=== PATIENT | female | born 1985 | race Caucasian/White ===

== ENCOUNTER 2018-10-28 14:56 | Inpatient (IN) | payer MEDICAID ==
[~2018-10-28] VITALS: Ht 167.6 cm; Wt 72.5 kg
[~2018-10-28 14:56] MED LIST: EPHEDrine 50 MG INJ ONE; OXYTOCIN 30 UNITS/LR 500 ML BAG IV ONE; PHENYLephrine 10 MG INJ ONE
[2018-10-28 15:47] VITALS: Ht 167.6 cm; Wt 72.5 kg
[2018-10-28 15:49] VITALS: BP 121/76; PULSE 93; RESP 19
[2018-10-28] MEDS ORDERED: CARBOPROST 250 MCG INJ IM PRN (16:00)
[2018-10-28] MEDS ORDERED: OXYTOCIN 30 UNITS/LR 500 ML IV PRN (16:00)
[2018-10-28] MEDS ORDERED: MISOPROSTOL 200 MCG TAB PR PRN ×2 (16:00→19:00)
[2018-10-28] MEDS ORDERED: METHYLERGONOVINE 0.2 MG INJ IM PRN (16:00)
[2018-10-28] MEDS: LACTATED RINGER'S 1,000 ML IV SCH (16:59)
--- NOTE | 2018-10-28 17:58 | PREAC ---
Date/Time of Note Date/Time of Note DATE: 10/28/18 TIME: 17:57 Anesthesia Eval and Record Evaluation Time Pre-Procedure Interview DATE: 10/28/18 TIME: 17:57 Age 33 Sex female NPO: 8 hrs Preoperative diagnosis Planned procedure repeat c/s Past Medical History Past Medical History: None Surgery & Anesthesia Issues No known issue Meds Anticoagulation: No Beta Marguerite within 24 hr: No Reason Beta Marguerite not given: Pt. not on B-Marguerite Current Medications Lactated Ringer's 1,000 ml @ 125 mls/hr Q8H IV Last administered on 10/28/18at 16:59; Admin Dose 125 MLS/HR; Start 10/28/18 at 15:53 Cefazolin Sodium/ Dextrose 50 ml @ 100 mls/hr ONCE IVPB ; Start 10/28/18 at 16:00 Oxytocin/Lactated Ringer's 500 ml @ 125 mls/hr POST IV ; Start 10/28/18 at 16:00 Oxytocin/Lactated Ringer's 500 ml @ 0 mls/hr ONCE PRN IV .VAGINAL BLEEDING; Start 10/28/18 at 16:00 Methylergonovine Maleate (Methergine) 0.2 mg ONCE PRN IM .VAGINAL BLEEDING; Start 10/28/18 at 16:00 Carboprost Tromethamine (Hemabate) 250 mcg ONCE PRN IM .VAGINAL BLEEDING; Start 10/28/18 at 16:00 Misoprostol (Cytotec) 1,000 mcg ONCE PRN [place] .VAGINAL BLEEDING; Start 10/28/18 at 16:00 Meds reviewed: Yes Allergies Coded Allergies: No Known Allergy (Unverified , 10/28/18) Allergies Reviewed: Yes Labs/Studies Labs Reviewed: Reviewed by anesthesiologist Result Diagram: 10/28/18 1620 Laboratory Tests 10/28/18 16:20 Blood Bank Test 10/28/18 16:20 Antibody Screen POSITIVE Blood Type A NEGATIVE test: Positive Pre-procedure Exam Last vitals Vital Signs Date Temp Pulse Resp B/P (MAP) Pulse Ox O2 O2 Flow FiO2 Time Delivery Rate 10/28/18 98.8 93 19 121/76 Room Air 15:49 (91) Airway: Adequate mouth opening, Adequate thyromental dist Mallampati: Mallampati II Teeth: Normal Lung: Normal Heart: Normal ASA Physical Status ASA physical status: 2 Emergency: None Planned Anesthetic Neuraxial: Spinal Planned Pain Management Sub-arachniod narcotics Pre-operative Attestations Prior to commencing anesthesia and surgery, the patient was re-evaluated, there was verification of: *The patient's identity *The results of appropriate recent lab work and preoperative vital signs *The above evaluation not changing prior to induction *Anesthetic plan, risk benefits, alternative and complications discussed with patient/family; questions answered; patient/family understands, accepts and wishes to proceed. REED PEREYRA Oct 28, 2018 17:58
[2018-10-28] MEDS ORDERED: METOCLOPRAMIDE 10 MG INJ IV PRN (18:00)
[2018-10-28] MEDS ORDERED: ONDANSETRON 4 MG INJ IV PRN ×2 (18:00)
[2018-10-28] MEDS ORDERED: NALOXONE (0.4 MG/ML) INJ IV PRN (18:00)
[2018-10-28] MEDS ORDERED: ALBUTEROL 0.083% (NEB) 2.5 MG/3 ML AMP HHN PRN (18:00)
[2018-10-28] MEDS ORDERED: KETOROLAC 30 MG INJ IV PRN (18:00)
[2018-10-28] MEDS ORDERED: HYDROmorphONE 0.5 MG/0.5 ML SYG IV PRN (18:00)
[2018-10-28] MEDS ORDERED: HYDROmorphONE 1 MG/5 ML IV SYRINGE IV PRN ×3 (18:00)
[2018-10-28] MEDS ORDERED: DIPHENHYDRAMINE 50 MG INJ IV PRN ×2 (18:00)
[2018-10-28] MEDS ORDERED: FENTAnyl 50 MCG/ML VIAL IV PRN ×3 (18:00)
--- NOTE | 2018-10-28 18:36 | HP ---
Date/Time of Note Date/Time of Note DATE: 10/28/18 TIME: 18:27 OB - History Hx of Present Free Text/Dictation 33 YO with IUP at 35.6 weeks with EDC 11/26/2018. 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 she was seen in consultation with perinatologist at maternal center in [place]. she underwent umbilical vein cordocentesis and intrauterine blood transfusion 2 times. last blood transfusion was on 10/14/2018. anemia and hydrops resolved. Perinatologist recommended to proceed with delivery at this time. NICU is aware that baby may need exchange transfusion and they are available. patient also has history of previous delivery, who desires to have repeat delivery. I discussed with the patient the risks, benefits, indications, and alternatives of procedure including but not limited to risks of infection, bleeding, damage to other organs, bowel, bladder, hernia formation, scar formation, possibility of blood transfusion, possible need for emergency hysterectomy. She was allowed to ask questions. All her questions were answered. Informed consent has been obtained. Care: Good Care Ultrasounds: Normal mid trimester US Obstetrical Complications: Other (Isoimmunization, Hydrops resolved) Medical Complications: Other (Isoimmunization) Past Family/Social History * Past Medical, Surgical, Family and Obstetric Histories reviewed from chart. OB Admission Exam Vital Signs Vital Signs Vital Signs Date Temp Pulse Resp B/P (MAP) Pulse Ox O2 O2 Flow FiO2 Time Delivery Rate 10/28/18 98.8 93 19 121/76 Room Air 15:49 (91) Physical Exam HEENT: WNL Heart: Rhythm Normal Lungs: Clear, Equal Abdomen: WNL Extremities: Normal Reflexes: Normal Last 72 hours Lab Results CBC & BMP 10/28/18 16:20 OB Assessment/Plan Other Assessment: IUP at 35.6 weeks Isoimmunization s/p intrauterine blood transfusion x 2 Hydrops Resolved h/o previous delivery Plan: Section CHRISTOPHE TEIXEIRA MD Oct 28, 2018 18:36
[2018-10-28] MEDS ORDERED: morphine SULFATE/PF (10 MG/10 ML) INJ ONE (18:37)
[2018-10-28] MEDS ORDERED: LACTATED RINGER'S 1,000 ML IV SCH (18:37)
[2018-10-28] MEDS ORDERED: LANOLIN HPA 1 PKT TOP PRN (19:00)
[2018-10-28] MEDS ORDERED: OXYCODONE/ACETAMINOPHEN (5/325) TAB PO PRN (19:00)
[2018-10-28] MEDS ORDERED: NA PHOSPHATE/BIPHOS 133 ML ENEMA PR PRN (19:00)
--- NOTE | 2018-10-28 19:59 | OPR ---
Date/Time of Note Date/Time of Note DATE: 10/28/18 TIME: 19:51 Operative Report Procedure Date: Oct 28, 2018 Preoperative Diagnosis IUP at 35.6 weeks Isoimmunization history of previous delivery Postoperative Diagnosis same Operation/Procedure Performed repeat delivery Surgeon Bird Hernandez MD Guide Setter Daisy De Luna MD Anesthesia Type: spinal Estimated Blood Loss: other (700) Transfusion none Specimen placenta Grafts/Implants none Tubes/Drains [place]y Cath Complications none Pt Condition Post Procedure: stable Disposition: PACU Procedure Description The risks, benefits, indications, alternatives of procedure including, but not limited to risk of infection, bleeding, damage to other organs, bowel, bladder, hernia formation, scar formation, possibility of blood transfusions discussed with patient. She was allowed to ask questions. All her questions were answered. Informed consent was obtained. DESCRIPTION OF PROCEDURE: She was taken to the operating room. Spinal an esthesia was induced. She was prepped and draped in the usual sterile fashion. Surgical time out one. Anesthesia was tested to be adequate. With permission from anesthesiologist, a knife was used to make a Pfannenstiel skin incision. The incision was taken down in layers. The fascia was cut, undermined and from the underlying muscle using sharp and blunt dissection. All the bleeders were cauterized. Peritoneum was entered bluntly. A low transverse incision was developed over the uterus. Amniotic fluid was clear and adequate. A viable infant in vertex presentation was delivered without any difficulty. The cord was clamped and cut, handed to awaiting team. Placenta was then delivered. Uterus was not exteriorized due to dense adhesions to anterior abdominal wall. Inside uterus was cleaned using a dry lap. All residual membranes were removed. The uterine incision was then closed using #1 Monocryl in 2 layers. Irrigation was done carefully. Careful evaluation of the uterine incision revealed no further bleeding. The peritoneum and rectus muscles and fascia were evaluated. All bleeders cauterized. Peritoneum was closed using 2- 0 Monocryl. At this time, the count was correct. Rectus muscle was reapproximated using 2-0 Monocryl. Rectus fascia was closed using #1 Vicryl. Subcutaneous tissue was cleaned and irrigated. All bleeders cauterized and the skin closed using Insorb. All counts correct. BIRD HERNANDEZ MD Oct 28, 2018 19:59
[2018-10-28] MEDS: OXYTOCIN 30 UNITS/LR 500 ML IV SCH ×2 (20:02→23:39)
[2018-10-28] MEDS: SENNA/DOCUSATE NA (8.6MG/50MG) TAB PO SCH (21:00)
[2018-10-28] MEDS: HYDROmorphONE 0.5 MG/0.5 ML SYG IV PRN (22:49)
[2018-10-28 23:24] VITALS: BP 120/77; PULSE 89; RESP 18
[2018-10-29] MEDS: KETOROLAC 30 MG INJ IV PRN ×2 (03:24→14:59)
[2018-10-29] MEDS: LACTATED RINGER'S 1,000 ML IV SCH ×4 (03:28→23:53)
[2018-10-29 04:26] VITALS: BP 139/87; PULSE 87; RESP 18
[2018-10-29 07:00] VITALS: BP 117/74; PULSE 90; RESP 20
[2018-10-29 07:33] VITALS: BP 119/69; PULSE 86; RESP 18
[2018-10-29] MEDS: HYDROmorphONE 0.5 MG/0.5 ML SYG IV PRN ×2 (07:41→11:50)
--- NOTE | 2018-10-29 07:53 | QN ---
Documentation Comment s/p c/s Subjective: no complaint Objective: Afebrile, VSS NAD A&O Abdomen: soft, appropriate tender Incision: no sign of bleeding/infection mild lochia Extremity: 1+ edema bilaterally Assessment: S/p C/S. POD # 1 Recovering Well Plan: current care CHRISTOPHE TEIXEIRA MD Oct 29, 2018 07:53
[2018-10-29] MEDS: SENNA/DOCUSATE NA (8.6MG/50MG) TAB PO SCH ×2 (09:35→23:36)
[2018-10-29 12:47] VITALS: BP 112/80; PULSE 100; RESP 18
[2018-10-29 16:15] VITALS: BP 108/66; PULSE 91; RESP 16
[2018-10-29] MEDS ORDERED: WITCH HAZEL/GLYCERIN PAD PR PRN (16:30)
[2018-10-29] MEDS: CEFAZOLIN 2 GM/50 ML (PMX) 50 ML IVPB SCH (17:05)
[2018-10-29 19:45] VITALS: BP 115/71; PULSE 92; RESP 18
[2018-10-29] MEDS: OXYCODONE/ACETAMINOPHEN (5/325) TAB PO PRN (20:00)
[2018-10-29] MEDS: IBUPROFEN 600 MG TAB PO SCH (23:36)
[2018-10-30] MEDS: OXYCODONE/ACETAMINOPHEN (5/325) TAB PO PRN ×4 (00:41→21:06)
[2018-10-30 05:07] VITALS: BP 99/73; PULSE 72; RESP 18
[2018-10-30] MEDS: IBUPROFEN 600 MG TAB PO SCH ×2 (06:05→11:30)
[2018-10-30 07:50] VITALS: BP 116/61; PULSE 83; RESP 16
[2018-10-30] MEDS: SENNA/DOCUSATE NA (8.6MG/50MG) TAB PO SCH ×2 (10:45→21:05)
--- NOTE | 2018-10-30 13:20 | QN ---
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 Baby in NICU T=98.1 BP 116/61 Fundus firm. Incision is clean, dry and intact. Lochia minimal. Ext NT, no edema. 4/5 WBC 7.9 Hgb 12.1 Plts 208. P: Continue care, Plan d/c tomorrow. Pt does not need Rhogam as she already has antibodies. The baby's bllod type is showing O negative but that is the type of blood that the baby received in utero. YELENA WILSON MD Oct 30, 2018 13:20
[2018-10-30 16:00] VITALS: BP 117/82; PULSE 86; RESP 17
[2018-10-30] MEDS: IBUPROFEN 800 MG TAB PO SCH ×2 (17:45→23:48)
[2018-10-30] MEDS ORDERED: IBUPROFEN 600 MG TAB PO SCH (18:00)
[2018-10-30 20:10] VITALS: BP 110/64; PULSE 86; RESP 18
[2018-10-31] MEDS: OXYCODONE/ACETAMINOPHEN (5/325) TAB PO PRN ×5 (00:43→22:18)
[2018-10-31 04:00] VITALS: BP 118/56; PULSE 82; RESP 18
[2018-10-31] MEDS: IBUPROFEN 800 MG TAB PO SCH ×3 (05:40→18:28)
[2018-10-31 08:40] VITALS: BP 112/67; PULSE 80; RESP 20
[2018-10-31] MEDS: SENNA/DOCUSATE NA (8.6MG/50MG) TAB PO SCH ×2 (08:40→22:18)
[2018-10-31] MEDS ORDERED: DIPHTH/TET/ACEL PERTUSS (ADULT) 0.5 ML VIAL IM* ONE (09:00)
[2018-10-31] MEDS ORDERED: MEASLES,MUMPS,RUBELLA VACCINE INJ SC* ONE (09:00)
--- NOTE | 2018-10-31 12:06 | DS ---
Date/Time of Note Date/Time of Note DATE: 10/31/18 TIME: 12:05 Obstetrical Discharge Record Final Diagnosis Final Diagnosis: delivered Other Final Diagnosis she underwent early repeat c/s due to isoimmunization Section Section: Repeat Complications Augmentation: No Induction: No Rupture of Membranes: No Condition on Discharge Physical Assessment Voiding: Yes Bowel Movement: Yes Breast: Soft, non-tender, Filling Fundus: Firm Abdomen and Incision: soft, appropriate tenderness Calf Tenderness: No Patient Condition: Good CHRISTOPHE TEIXEIRA MD Oct 31, 2018 12:06
[2018-10-31 16:30] VITALS: BP 123/67; PULSE 87; RESP 18
[2018-10-31 22:18] VITALS: BP 123/65; PULSE 66; RESP 19
[2018-11-01] MEDS: IBUPROFEN 800 MG TAB PO SCH ×4 (00:07→17:53)
[2018-11-01 03:50] VITALS: BP 114/64; PULSE 81; RESP 18
[2018-11-01 07:24] VITALS: BP 112/59; PULSE 82; RESP 18
[2018-11-01] MEDS: SENNA/DOCUSATE NA (8.6MG/50MG) TAB PO SCH (08:40)
[2018-11-01] MEDS: CEFAZOLIN 2 GM/50 ML (PMX) 50 ML IVPB SCH (11:26)
[2018-11-01 17:45] VITALS: BP 129/82; PULSE 103
--- NOTE | 2018-11-02 18:11 | DELSUM ---
Delivery Summary A-C Datetime Report Generated by CPN: 11/02/2018 18:11 DELIVERY PERSONNEL Welt Slasher: Duvo, Verónica MATERNAL INFORMATION Delivery Anesthesia: Spinal Medications in Delivery: see anesthesia record Delivery QBL (ml): 600 Placenta Cultured: Yes Maternal Complications: Other Other Maternal Complications: pre-term, Antibody POSITIVE during . Hydrops fetalis due to R H isoimmunization. intrauterine transfusions on 10/07/18 _ 10/12/18. LABOR SUMMARY EDC: 11/26/2018 00:00 No. Babies in Womb: 1 Attempted: No Labor Anesthesia: None LABOR INFORMATION Reason for Induction: Not Applicable Oxytocin: N/A Group B Beta Strep: Done, Result Unknown Antibiotics # of Doses: 1 Antibiotics Time of Last Dose: 10/28/2018 18:50 Steroids Given: Full Course Reason Steroids Not Administered: Not Applicable MEMBRANES Membranes Rupture Method: Artificial Rupture of Membranes: 10/28/2018 19:03 Length of Rupture (hr): 0.02 Amniotic Fluid Color: Clear Amniotic Fluid Amount: Moderate Amniotic Fluid Odor: None STAGES OF LABOR Stage 3 hr: 0 Stage 3 min: 1 CSECTION DELIVERY Primary Indication: Other Other Primary Indication: RH isoimmunization Secondary Indication: Other Other Secondary Indication: hydrops fetalis CSection Urgency: Non Elective CSection Incidence: Repeat Labor: N/A Elective: Nonelective CSection Incision: Lower Uterine Transverse BABY A INFORMATION Delivery Date/Time: 10/28/2018 19:04 Method of Delivery: Born in Route : No : N/A Forceps: N/A Vacuum Extraction: N/A Shoulder Dystocia : No SHOULDER DYSTOCIA BABY A Delivery Date/Time: 10/28/2018 19:04 PRESENTATION/POSITION BABY A Presentation: Cephalic Cephalic Presentation: Vertex Vertex Position: Left Occipital Anterior Breech Presentation: N/A PLACENTA INFORMATION BABY A Placenta Delivery Time : 10/28/2018 19:05 Placenta Method of Delivery: Manual Removal Placenta Status: Delivered SCORES BABY A Heart Rate 1 min: >100 bpm Resp Effort 1 min: Good Cry Reflex Irritability 1 min: Cough/Sneeze/Pulls Away Muscle Tone 1 min: Active Motion Color 1 min: Body [place], Extremit Blue Resuscitation Effort 1 min: Tactile Stimulation SCORE 1 MIN: 9 Heart Rate 5 min: >100 bpm Resp Effort 5 min: Good Cry Reflex Irritability 5 min: Cough/Sneeze/Pulls Away Muscle Tone 5 min: Active Motion Color 5 min: Body [place], Extremit Blue Resuscitation Effort 5 min: Tactile Stimulation SCORE 5 MIN: 9 INFORMATION BABY A Gestational Age at Delivery: 35.6 Gestational Status: Late - 34- 36.6 Weeks Infant Outcome : Liveborn Condition : Stable Sex: Male IDENTIFICATION/MEDS BABY A ID Band Number: [id number] Sensor Applied: No Sensor Number: [id number] Vitamin K Given : Not Given Erythromycin Given: Not Given WEIGHT/LENGTH BABY A Birthweight (gm): 2570 Weight (lb): 5 Infant Weight (oz): 11 Infant Length (in): 17.00 Length (cm): 43.18 CORD INFORMATION BABY A No. Cord Vessels: 3 Nuchal Cord : N/A Cord Blood Taken: Yes Suction: Mouth; Nose ASSESSMENT BABY A Complications: Other Infant Complications- Other: hydrops, RH isoimmunization Physical Findings at Delivery: Within Normal Limits Shop Mechanic Helper/ALS Called : Yes Care By: Dr. SILVERMAN Transferred To: NICU
--- NOTE | 2018-11-03 16:07 | PAC ---
Date/Time of Note Date/Time of Note DATE: 11/03/18 TIME: 16:07 Post-Anesthesia Notes Post-Anesthesia Note Last documented vital signs Vital Signs Date Temp Pulse Resp B/P (MAP) Pulse Ox O2 O2 Flow FiO2 Time Delivery Rate 11/01/18 98.8 103 129/82 17:45 (98) 11/01/18 18 Room Air 07:24 Activity: WNL Respiratory function: WNL Cardiovascular function: WNL Mental status: Baseline Pain reasonably controlled: Yes Hydration appropriate: Yes Nausea/Vomiting absent: Yes REED PEREYRA Nov 03, 2018 16:07
--- NOTE | 2018-11-03 16:08 | CONS ---
Consultation Date/Type/Reason Admit Date/Time Oct 28, 2018 at 14:56 Initial Consult Date 10/29/18 Type of Consult anesthesiology Reason for Consultation follow up Date/Time of Note DATE: 11/03/18 TIME: 16:07 24 HR Interval Summary Free Text/Dictation Pt seen and examined on 10/29/18 was POD#1 s/p repeat c/s. Pt received spinal duramorph for post-op pain control. No N/V/HUBBARD. Exam/Review of Systems Exam Vitals Vital Signs Date Temp Pulse Resp B/P (MAP) Pulse Ox O2 O2 Flow FiO2 Time Delivery Rate 11/01/18 98.8 103 129/82 17:45 (98) 11/01/18 18 Room Air 07:24 Results Results 24hrs Laboratory Tests Test 11/02/18 21:36 Lab Scanned Report REFERENCE LAB REED PEREYRA Nov 03, 2018 16:08
== END 2018-11-01 17:55 | disposition home or self-care (01) | DRG 786 ==
LOC: L-D 14:56 → PP1 10-29 16:12
PROVIDERS: ADMIT Specialist; ATTEND Specialist
PROC: 10D00Z1 Extraction of Products of Conception, Low, Open Approach (ICD-10-PCS; principal; 2018-10-28 17:00)
DX: O65.5 Obstructed labor due to abnormality of maternal pelvic organs (principal); O60.13X0 Preterm labor second trimester with preterm delivery third trimester, not applicable or unspecified; O34.211 Maternal care for low transverse scar from previous cesarean delivery; O36.1930 Maternal care for other isoimmunization, third trimester, not applicable or unspecified; Z3A.35 35 weeks gestation of pregnancy; Z37.0 Single live birth
CPT/HCPCS: 36415; 36600; 82803; 85025; 85610; 85730; 86592; 86850; 86870; 86885; 86900; 86901; 86902; 87340; 88307; 99464; J0690; J1170; J1885; J2274; J2590; J7120